=== PATIENT | female | born 1955 | race Caucasian/White ===

== ENCOUNTER 2024-06-30 11:59 | Emergency (ER) | payer MEDICARE | END 2024-06-30 13:39 | disposition home or self-care (01) | LOC: JP.ED 11:59 | DX: R04.0 Epistaxis (principal); F17.210 Nicotine dependence, cigarettes, uncomplicated; Z88.2 Allergy status to sulfonamides; Z79.899 Other long term (current) drug therapy | CPT/HCPCS: 30901; 99283; 99283-25 ==